=== PATIENT | male | born 1950 | race Caucasian/White ===

== ENCOUNTER 2022-05-13 09:34 | Emergency (ER) | payer MEDICARE, BC, SELFPAY ==
[2022-05-13 09:48] VITALS: BP 139/83; PULSE 82; TEMP 36.3; O2SAT 96; BMI 28.6
--- NOTE | 2022-05-14 01:02 | ED.SKABFB ---
HPI - Skin/Abscess/Foreign Bdy General Chief complaint: Skin/Abscess/Foreign Body Stated complaint: left leg pain Time Seen by Provider: 05/13/22 10:29 History of Present Illness HPI narrative: 8-year-old man presenting to the emergency department with concern of swelling and pain on inner upper left thigh. Noticed a lump yesterday and it has grown quickly in size redness and pain. Underlying history of diabetes. Reports excision of a few what sounds like sebaceous cysts over the years. Does not have hidradenitis suppurativa or other similar. No fever. No drainage. In an area that is sensitive and continually getting manipulated so quite uncomfortable. No MRSA history Related Data Home Medications Medication Instructions Recorded Confirmed aspirin 81 mg tablet,delayed 81 mg PO DAILY 05/13/22 05/13/22 release (Adult Low Dose Aspirin) glipizide 10 mg tablet, extended mg PO 05/13/22 release 24 hr hydrochlorothiazide 12.5 mg capsule mg 05/13/22 metformin 500 mg tablet mg 05/13/22 rosuvastatin 5 mg tablet mg 05/13/22 Previous Rx's Medication Instructions Recorded lisinopril 20 mg tablet 20 mg PO .HS #30 tabs 04/05/22 amoxicillin 875 mg-potassium 1 tab PO BID #16 tabs 05/13/22 clavulanate 125 mg tablet naproxen 500 mg tablet 250 - 500 mg PO BID #20 tabs 05/13/22 Allergies Allergy/AdvReac Type Severity Reaction Status Date / Time atorvastatin AdvReac Mild myalgias Verified 09/15/21 10:06 Review of Systems Status of ROS: Reports: 10 or more systems reviewed and unremarkable except as noted in History and below PFSH PFS Surgical History History of colonoscopy Family History Uncle Diabetes Sister Diabetes Father High blood pressure Other Multiple myeloma Social History Narrative: Non-smoker Smoking Status: Never smoker How often do you have a drink containing alcohol: never AUDIT-C Alcohol total score: 0 Non-prescribed substance use: denies use service: No Exam Narrative: Exam Narrative: Pleasant. Tall. Well built. Energetic. Breathing easily. Heart is in regular rate. Skin is warm and dry. Extremities well perfused without edema. In her left thigh with faint erythema without induration extending over about a palm and a half sized area. Further toward the groin then is 1 and 1/2 to 2 in oval area of darker erythema calor, induration and significant tenderness. I cannot appreciate an area of fluctuance. There is a small scab centrally too. Const: Vital Signs, click to edit/add: Vital Signs - 24 hr 05/13/22 09:48 Temperature 97.4 F L Pulse Rate [Right Pulse Oximeter] 82 Blood Pressure [Le ft Upper Arm] 139/83 Pulse Oximetry 96 Oxygen Delivery Me thod Room Air Documenting provider has reviewed patient's vital signs: yes Course Vital Signs Vital signs: Initial Vital Signs Temperature 97.4 F L 05/13/22 09:48 Temperature Source Temporal Artery Scan 05/13/22 09:48 Pulse Rate 82 05/13/22 09:48 Pulse Rhythm 05/13/22 09:48 Blood Pressure 139/83 05/13/22 09:48 Blood Pressure Mean 101 05/13/22 09:48 Pulse Oximetry 96 05/13/22 09:48 Oxygen Delivery Method 05/13/22 09:48 Vital Signs Temperature 97.4 F L 05/13/22 09:48 Pulse Rate 82 05/13/22 09:48 Blood Pressure 139/83 05/13/22 09:48 Pulse Oximetry 96 05/13/22 09:48 Oxygen Delivery Method 05/13/22 09:48 Temperature 97.4 F L 05/13/22 09:48 Pulse Rate 82 05/13/22 09:48 Blood Pressure 139/83 05/13/22 09:48 Pulse Oximetry 96 05/13/22 09:48 Oxygen Delivery Method 05/13/22 09:48 MDM - Skin/Abscess/Foreign Bdy MDM Narrative Medical decision making narrative: I proposed collecting the scab to see if that might help with some drainage. Removing that did not result in any drainage. Subsequently returned with an ultrasound. There does appear to be perhaps little more than a 1 1/2 cm area of cystic structure likely abscess and it does seem to contain some debris. Anesthetized this indurated area with bupivacaine. Cleansed with Betadine. With an 18 gauge attempted to aspirate this area of cystic structure. Not able to obtain any purulence. I do not think there is enough here to warrant full excision cutting/I and D particularly in this area. Tolerated this quite well. Very patient in busy emergency department. Cognizant of diabetic history. Will be initiating Augmentin. Warm soaks. I discussed pain management. Mr. Collins mentioned that as relatively opiate naive, T3 had been helpful in the past but appeared that he felt that ibuprofen naproxen would be sufficient. I did prescribe naproxen ultimately. See patient discharge information Discharge Plan Discharge Clinical Impression: Abscess, Cellulitis Patient Disposition: Home, Self-Care Condition: Stable Instructions: Warm Compress or Soak (ED) Additional Instructions: Hydrate. I would do warm soapy or warm Epson salt soaks 2-3 times daily over the next few days. You could also try to warm moist compresses. This might be a wetted and folded up hand towel microwaved. Can get pretty hot though. Can take naproxen for pain as prescribed. Otherwise could substitute ibuprofen up to 800 mg per dose. Acetaminophen up to 1000 mg per dose can be taken with either 1 of these. I would expect redness to spread a little for another day. Be seen for spreading redness beyond 2 days, marked increase in pain or swelling, fever. Prescriptions: New amoxicillin-pot clavulanate 875-125 mg tablet 1 tab PO BID Qty: 16 0RF naproxen 500 mg tablet 250 - 500 mg PO BID Qty: 20 0RF No Action metformin 500 mg tablet Label Comments: TAKE ONE TABLET BY MOUTH EVERY MORNING AND TWO TABLETS BY MOUTH EVERY EVENING glipizide 10 mg tablet extended release 24hr PO Label Comments: TAKE 2 TABLETS BY MOUTH DAILY hydrochlorothiazide 12.5 mg capsule rosuvastatin 5 mg tablet Label Comments: TAKE 1 TABLET BY MOUTH AT BEDTIME aspirin [Adult Low Dose Aspirin] 81 mg tablet,delayed release (DR/EC) 81 mg PO DAILY lisinopril 20 mg tablet 20 mg PO .HS Qty: 30 0RF Follow Up/Referrals: Provider,Not a Local [Primary Care Provider] - Stand Alone Forms: [facility] Info Instructions
== END 2022-05-13 12:43 | disposition home or self-care (01) ==
PROVIDERS: Emergency Provider Family Medicine
DX: L03.116 Cellulitis of left lower limb (principal); L02.416 Cutaneous abscess of left lower limb
CPT/HCPCS: 10160; 99283; 99284

== ENCOUNTER 2022-05-17 10:45 | Emergency (ER) | payer MEDICARE, BC, SELFPAY ==
[2022-05-17 10:58] VITALS: BP 120/66; PULSE 86; RESP 16; TEMP 36.4; O2SAT 97; BMI 28.6
[2022-05-17 11:37] LABS: Lactate* 1.2 mmol/L (0.5-1.9)
[2022-05-17] MEDS: MORPHINE 4 MG/ML INJ IVP (11:37)
[2022-05-17 11:38] LABS: Basophils Absolute Auto 0.01 K/uL (0.00-0.30); Basophils Percent Auto 0.1 % (0.0-3.0); Eosinophils Absolute Auto 0.24 K/uL (0.00-0.50); Eosinophils Percent Auto 2.9 % (0.0-7.0); Hematocrit 38.9 % (37.0-53.0); Hemoglobin* 13.1 gm/dL (13.5-17.5); Lymphocytes Percent Auto 12.7 % (20-44); Mean Corpuscular HGB Conc 34 gm/dL (32-36); Mean Corpuscular Hemoglobin 31 pg (26-34); Mean Corpuscular Volume 91 fL (80-100); Monocytes Percent Auto 8.5 % (0.0-11.0); Neutrophils Percent Auto 75.8 % (42.0-72.0); Platelet Count* 225 K/uL (140-440); RDW Coefficient of Variation % 12.6 % (11.5-15.5); Red Blood Count 4.27 m/uL (4.30-5.90); White Blood Count* 8.16 K/uL (4.50-11.00)
[2022-05-17 11:39] LABS: Slide Review Reflex No
[2022-05-17] MEDS: cefTRIAXone 1 GM in 0.9 % SODIUM CHLORIDE Mini-bag 100 ML IVPB (11:46)
[2022-05-17 11:53] LABS: Chloride* 103 mmol/L (96-114); Sodium* 135 mmol/L (135-149)
[2022-05-17 11:54] LABS: Potassium* 3.9 mmol/L (3.6-5.1)
[2022-05-17 11:56] LABS: Est. Creatinine Clearance* 84.39; Estimated Glomerular Filt Rate 81 ml/min
[2022-05-17 11:57] LABS: Blood Urea Nitrogen* 23 mg/dL (7-30); Calcium* 9.2 mg/dL (8.4-10.6); Carbon Dioxide* 28 mmol/L (20-32); Glucose* 254 mg/dL (60-115)
--- NOTE | 2022-05-17 12:04 | ED.NURSE ---
dr. barahona did I and D to L inner thigh. area cleaned and dressing applied. 4X4 covered with kerlex
[2022-05-17 12:38] VITALS: BP 132/74; PULSE 78; RESP 16; TEMP 36.4; O2SAT 99
[2022-05-17 12:52] LABS: SARS PCR* Negative SARS-CoV-2 (Negative)
--- NOTE | 2022-05-17 13:14 | ED_ITS ---
HPI - General Adult General Date Seen: 05/17/22 Chief complaint: Extremity Pain/Injury, Lower Stated complaint: Upper L leg pain/growth Time Seen by Provider: 05/17/22 11:02 Source: patient Mode of arrival: ambulatory Limitations: no limitations History of Present Illness HPI narrative: Patient is a 71 year old male with underlying diabetes who presents for re- evaluation of an infection of his left leg. He was seen here about 5 days ago, and at that time had a cellulitis and maybe a small area of developing abscess but not enough to drain. He was started on Augmentin at that time. He says that it had been stable but over the past couple of days has gotten significantly worse, he now has more redness and significantly more pain. He denies any fevers or chills, has not had vomiting or weakness. He has noted that his blood sugars have been up a little bit over the past couple of days. He has continued to take the Augmentin and has a few more days left of that. He does have a history of sebaceous cysts, has never had an abscess which has needed to be drained. Related Data Home Medications Medication Instructions Recorded Confirmed aspirin 81 mg tablet,delayed 81 mg PO DAILY 05/13/22 05/17/22 release (Adult Low Dose Aspirin) glipizide 10 mg tablet, extended mg PO 05/13/22 release 24 hr hydrochlorothiazide 12.5 mg capsule mg 05/13/22 metformin 500 mg tablet mg 05/13/22 Previous Rx's Medication Instructions Recorded lisinopril 20 mg tablet 20 mg PO .HS #30 tabs 04/05/22 amoxicillin 875 mg-potassium 1 tab PO BID #16 tabs 05/13/22 clavulanate 125 mg tablet naproxen 500 mg tablet 250 - 500 mg PO BID #20 tabs 05/13/22 Allergies Allergy/AdvReac Type Severity Reaction Status Date / Time atorvastatin AdvReac Mild myalgias Verified 05/17/22 10:56 Review of Systems Status of ROS: Reports: 6 or more systems reviewed and unremarkable except as noted in History and below [facility] Surgical History History of colonoscopy Family History Uncle Diabetes Sister Diabetes Father High blood pressure Other Multiple myeloma Social History Narrative: Non-smoker Smoking Status: Never smoker Do you use any of these nicotine containing products: None Second hand tobacco smoke exposure: No How often do you have a drink containing alcohol: never AUDIT-C Alcohol total score: 0 Non-prescribed substance use: denies use service: No Exam Narrative: Exam Narrative: Vital signs as noted above. In general, an alert, well-appearing patient. Head: Normocephalic, atraumatic. Eyes: Pupils are equal reactive. Extraocular movements are full. Conjunctivae are normal. ENT: Mucous membranes are moist. Throat is normal. Neck: Supple without lymphadenopathy. Heart: Regular rate and rhythm. No murmur or rub. Lungs: Clear bilaterally. No increased work of breathing, crackles or wheezes. Abdomen: Soft and nontender. No organomegaly. Extremities: Well perfused. No edema. On the left leg, there is an area of erythema, induration and significant tenderness in the groin with surrounding erythema and warmth. It isn't notably fluctuant. Range of motion of the hip is full. Neurologic: Patient is alert and oriented to person and place. Speech is fluent. Face is symmetric. Moves all extremities equally. Affect: Normal. Skin: Warm and dry. Well perfused. Const: Vital Signs, click to edit/add: Vital Signs - 24 hr 05/17/22 10:58 05/17/22 12:38 Temperature 97.5 F L 97.5 F L Pulse Rate [Pulse Oximeter] 86 78 Respiratory Rate 16 16 Blood Pressure [Ri ght Upper Arm] 120/66 132/74 Pulse Oximetry 97 99 Oxygen Delivery Me thod Room Air Room Air Documenting provider has reviewed patient's vital signs: yes Course Course Hospital Course: An IV was placed, we lenore labs including a blood culture. He had morphine 4 mg for pain. I used the ultrasound to look over the area of induration any did have a couple of pockets of pus, which I recommended that we drain. He agreed to that procedure. Procedure note: The overlying skin was anesthetized with lidocaine with epinephrine. I then used a number 10 scalpel to incise over 1 of the pockets visualized on ultrasound. I drained some pus out of this area then looked again with ultrasound, the other pocket had not drained at that time so I extended the incision to some degree and then used a straight mosquito to break up some loculations. Re-evaluation with ultrasound at that time did show successful drainage of all the areas of accumulated pus. He tolerated this well, no immediate complications. A dressing was applied by the nurse. I did send a wound culture. Labs are overall fairly reassuring. His lactate is normal, white blood cell count is normal at 8.16. He is very mildly anemic at 13.1. Platelets are normal. Minimal left shift at 75.8 neutrophils. Electrolytes are normal, blood sugar is elevated here at 254 but carbon dioxide is normal at 28. He does have an elevated CRP at 9. He is currently feeling significantly improved, have warned him that the lidocaine is responsible for at least part of that and he will have recurrence of pain once the anesthetic has worn off, but I do think it is probably helpful to have that area drained. I think there was a couple of possibilities here, 1 is that this is due to MRSA and does not respond to the Augmentin as result, the other is that he just was not able to clear that small area of developing abscess a got worse instead of better. As a result, I have recommended that we add Bactrim, finish out his course of Augmentin. I think it is reasonable to try letting him go home on oral antibiotics. I did give him a dose of Rocephin here. I have warned him that it is possible he will get worse instead of better and may need to return. Otherwise, follow up in clinic in a couple days time for recheck. We talked about warm soaks, keeping that area open as much as possible rather than letting it close up, and dressing changes. He can use Tylenol 1000 mg 3 times daily and then I prescribed oxycodone as well for severe pain if needed. Vital Signs Vital signs: Initial Vital Signs Temperature 97.5 F L 05/17/22 10:58 Temperature Source Temporal Artery Scan 05/17/22 10:58 Pulse Rate 86 05/17/22 10:58 Respiratory Rate 16 05/17/22 10:58 Blood Pressure 120/66 05/17/22 10:58 Blood Pressure Mean 84 05/17/22 10:58 Blood Pressure Position Sitting 05/17/22 10:58 Pulse Oximetry 97 05/17/22 10:58 Oxygen Delivery Method 05/17/22 10:58 Vital Signs Temperature 97.5 F L 05/17/22 10:58 Pulse Rate 86 05/17/22 10:58 Respiratory Rate 16 05/17/22 10:58 Blood Pressure 120/66 05/17/22 10:58 Pulse Oximetry 97 05/17/22 10:58 Oxygen Delivery Method 05/17/22 10:58 Temperature 97.5 F L 05/17/22 12:38 Pulse Rate 78 05/17/22 12:38 Respiratory Rate 16 05/17/22 12:38 Blood Pressure 132/74 05/17/22 12:38 Pulse Oximetry 99 05/17/22 12:38 Oxygen Delivery Method 05/17/22 12:38 Medical Decision Making Lab Data Labs: Lab Results 05/17/22 05/17/22 05/17/22 Range/Units 11:35 11:35 11:35 WBC 8.16 (4.50-11.00) K/uL RBC 4.27 L (4.30-5.90) m/uL Hgb 13.1 L (13.5-17.5) gm/dL Hct 38.9 (37.0-53.0) % MCV 91 (80-100) fL MCH 31 (26-34) pg MCHC 34 (32-36) gm/dL RDW Coeff of Lisa 12.6 (11.5-15.5) % Plt Count 225 (140-440) K/uL Neut % (Auto) 75.8 H (42.0-72.0) % Lymph % (Auto) 12.7 L (20-44) % [place] % (Auto) 8.5 (0.0-11.0) % Eos % (Auto) 2.9 (0.0-7.0) % Baso % (Auto) 0.1 (0.0-3.0) % Neut # (Auto) 6.20 (1.7-7.0) K/uL Lymph # (Auto) 1.00 (0.90-2.90) K/uL [place] # (Auto) 0.70 (0.00-0.90) K/UL Eos # (Auto) 0.24 (0.00-0.50) K/uL Baso # (Auto) 0.01 (0.00-0.30) K/uL Sodium 135 (135-149) mmol/L Potassium 3.9 (3.6-5.1) mmol/L Chloride 103 (96-114) mmol/L Carbon Dioxide 28 (20-32) mmol/L BUN 23 (7-30) mg/dL Creatinine 1.0 (0.5-1.5) mg/dL Estimated Creat Clear 84.39 Estimated GFR 81 ml/min Glucose 254 H (60-115) mg/dL Lactate 1.2 (0.5-1.9) mmol/L Calcium 9.2 (8.4-10.6) mg/dL C-Reactive Protein 9.0 H (0.5-1.0) mg/dL SARS-CoV-2 (PCR) (Negative) 05/17/22 Range/Units 11:42 WBC (4.50-11.00) K/uL RBC (4.30-5.90) m/uL Hgb (13.5-17.5) gm/dL Hct (37.0-53.0) % MCV (80-100) fL MCH (26-34) pg MCHC (32-36) gm/dL RDW Coeff of Lisa (11.5-15.5) % Plt Count (140-440) K/uL Neut % (Auto) (42.0-72.0) % Lymph % (Auto) (20-44) % [place] % (Auto) (0.0-11.0) % Eos % (Auto) (0.0-7.0) % Baso % (Auto) (0.0-3.0) % Neut # (Auto) (1.7-7.0) K/uL Lymph # (Auto) (0.90-2.90) K/uL [place] # (Auto) (0.00-0.90) K/UL Eos # (Auto) (0.00-0.50) K/uL Baso # (Auto) (0.00-0.30) K/uL Sodium (135-149) mmol/L Potassium (3.6-5.1) mmol/L Chloride (96-114) mmol/L Carbon Dioxide (20-32) mmol/L BUN (7-30) mg/dL Creatinine (0.5-1.5) mg/dL Estimated Creat Clear Estimated GFR ml/min Glucose (60-115) mg/dL Lactate (0.5-1.9) mmol/L Calcium (8.4-10.6) mg/dL C-Reactive Protein (0.5-1.0) mg/dL SARS-CoV-2 (PCR) Negative SARS-CoV-2 (Negative) Discharge Plan Discharge Clinical Impression: Abscess, Cellulitis Patient Disposition: Home, Self-Care Condition: Improved Instructions: Cellulitis (ED), Abscess Incision and Drainage (DC) Additional Instructions: Continue the Augmentin, add Bactrim as prescribed. You should soak in a warm tub 2 to 3 times a day and gently agitate the water around this wound. The goal is to keep it from completely healing up for the next several days to week so that it can heal from the inside out. Dressing changes after warm soaks. Recheck with your clinic in 24-48 hours. If you are worsening rather than gradually improving, develops new symptoms such as fevers, chills, vomiting etcetera, return to the emergency department right away. Tylenol 1000 mg 3 times daily, oxycodone if needed for more severe pain. Prescriptions: No Action metformin 500 mg tablet Label Comments: TAKE ONE TABLET BY MOUTH EVERY MORNING AND TWO TABLETS BY MOUTH EVERY EVENING glipizide 10 mg tablet extended release 24hr PO Label Comments: TAKE 2 TABLETS BY MOUTH DAILY hydrochlorothiazide 12.5 mg capsule aspirin [Adult Low Dose Aspirin] 81 mg tablet,delayed release (DR/EC) 81 mg PO DAILY amoxicillin-pot clavulanate 875-125 mg tablet 1 tab PO BID Qty: 16 0RF naproxen 500 mg tablet 250 - 500 mg PO BID Qty: 20 0RF lisinopril 20 mg tablet 20 mg PO .HS Qty: 30 0RF Follow Up/Referrals: Provider,Not a Local [Primary Care Provider] - Stand Alone Forms: [employer] Info Instructions
== END 2022-05-17 13:02 | disposition home or self-care (01) ==
PROVIDERS: Emergency Provider Emergency Medicine
DX: L02.416 Cutaneous abscess of left lower limb (principal)
CPT/HCPCS: 10060; 36415; 80048; 83605; 85025; 86140; 87040; 87070; 87186; 87635; 96365; 96375; 99284; J0696; J2270

== ENCOUNTER 2022-06-07 11:39 | Outpatient (CLI) | payer MEDICARE, BC, SELFPAY | END 2022-06-07 11:40 | disposition home or self-care (01) | LOC: NFLDREF 06-08 02:40 | PROVIDERS: Visit Provider Physician Assistant Medical | DX: E11.69 Type 2 diabetes mellitus with other specified complication (principal); I10 Essential (primary) hypertension; N52.1 Erectile dysfunction due to diseases classified elsewhere | CPT/HCPCS: 80053; 80061; 82043; 82570; 84153; 84443 ==

== ENCOUNTER 2023-06-27 10:18 | Outpatient (CLI) | payer MEDICARE, BC, SELFPAY ==
--- OUTSIDE RECORDS SUMMARY | 2023-06-28 06:08 | XMS_ITS | Clinical Summary ---
Author Name Unknown Organization [facility] Address [place], [place] [address] Care Team Providers Care Coding Quality Coordinator Name Role Phone Dr No Primary Primary Care Provider Unavailabl e Social History Tobacco Use Types Packs/Day Years Used Date Smoking Tobacco: Never Assessed Sex and Gender Information Value Date Recorded Sex Assigned at Not on file Gender Identity Not on file Sexual Orientation Not on file Plan of Treatment Not on file Care Teams Coding Quality Coordinator Relationship Specialty Start Date End Date Regina Berg Primary . PCP - General 08/07/08
== END 2023-06-27 10:19 | disposition home or self-care (01) ==
LOC: NFLDREF 06-28 06:07
PROVIDERS: PCP Physician Assistant Medical; Referring Provider Physician Assistant Medical; Visit Provider Physician Assistant Medical
DX: E11.3293 Type 2 diabetes mellitus with mild nonproliferative diabetic retinopathy without macular edema, bilateral (principal); E78.5 Hyperlipidemia, unspecified; I10 Essential (primary) hypertension; D64.9 Anemia, unspecified; Z12.5 Encounter for screening for malignant neoplasm of prostate
CPT/HCPCS: 80053; 80061; 82043; 82570; G0103

== ENCOUNTER 2024-07-22 11:52 | Outpatient (CLI) | payer MEDICARE, BC, SELFPAY | END 2024-07-22 11:53 | disposition home or self-care (01) | LOC: NFLDREF 07-30 22:56 | PROVIDERS: PCP Physician Assistant Medical; Referring Provider Physician Assistant Medical; Visit Provider Physician Assistant Medical | DX: I10 Essential (primary) hypertension (principal); E11.3293 Type 2 diabetes mellitus with mild nonproliferative diabetic retinopathy without macular edema, bilateral; E78.2 Mixed hyperlipidemia; E11.9 Type 2 diabetes mellitus without complications; Z12.5 Encounter for screening for malignant neoplasm of prostate | CPT/HCPCS: 80053; 80061; 82043; 82570; 84443; G0103 ==

== ENCOUNTER 2024-09-09 14:58 | Outpatient (CLI) | payer MEDICARE, BC, SELFPAY | END 2024-09-09 14:59 | disposition home or self-care (01) | PROVIDERS: PCP Physician Assistant Medical | DX: L02.91 Cutaneous abscess, unspecified (principal) | CPT/HCPCS: 87070 ==